=== PATIENT | female | born 1990 | race Caucasian/White ===

== ENCOUNTER 2020-08-06 14:00 | Observation (INO) | payer OTHER ==
[~2020-08-06] VITALS: Ht 165.1 cm; Wt 114.3 kg
[2020-08-06] MEDS ORDERED: PREN1TAB80 PO (14:18)
[2020-08-06 14:44] VITALS: BP 128/69
== END 2020-08-06 16:15 | disposition home or self-care (01) ==
LOC: 4S 14:00
PROVIDERS: ADMIT Obstetrics & Gynecology; ATTEND Obstetrics & Gynecology
DX: O36.8130 Decreased fetal movements, third trimester, not applicable or unspecified (principal); Z3A.38 38 weeks gestation of pregnancy
CPT/HCPCS: 59025; 99219

== ENCOUNTER 2020-08-10 19:06 | Inpatient (IN) | payer OTHER ==
[~2020-08-10] VITALS: Ht 165.1 cm; Wt 116.1 kg
[~2020-08-10 19:06] MED LIST: PREN1TAB80 PO
[2020-08-10] MEDS ORDERED: METOCLOPRAMIDE HCL 5 MG/ML 2 ML VIAL IVP PRN (20:15)
[2020-08-10] MEDS ORDERED: OXYTOCIN 30 UNITS/LACT RINGERS 500 ML IV ONE (20:15)
[2020-08-10] MEDS ORDERED: RINGERS SOLUTION,LACTATED 1,000 ML IV PRN (20:15)
[2020-08-10] MEDS ORDERED: OXYGEN THERAPY IH SCH (20:15)
[2020-08-10] MEDS ORDERED: CITRIC ACID/SODIUM CITRATE 30 ML SOLUTION UDCUP PO PRN (20:15)
[2020-08-10] MEDS ORDERED: DINOPROSTONE 10 MG VAGINAL SUPPOSITORY VG ONE (20:45)
[2020-08-10] MEDS: RINGERS SOLUTION,LACTATED 1,000 ML IV SCH (20:51)
[2020-08-10 21:14] LABS: BASOPHILS % (AUTO) 0.3 % (0.0-2.0); EOSINOPHILS % (AUTO) 0.8 % (1.0-6.0); HEMATOCRIT 34.8 % (36-46); HEMOGLOBIN 11.5 g/dL (12.0-16.0); LYMPHOCYTES # (AUTO) 2.4 K/uL (1.0-4.8); LYMPHOCYTES % (AUTO) 16.4 % (22.0-44.0); MEAN CORPUSCULAR HEMOGLOBIN 28.2 pg (26.0-34.0); MEAN CORPUSCULAR VOLUME 86 fL (80-100); MONOCYTES % (AUTO) 6.7 % (2.0-9.0); NEUTROPHILS % (AUTO) 75.8 % (40.0-70.0); RED BLOOD CELL COUNT(AUTO) 4.07 MIL/uL (4.00-5.20); RED CELL DISTRIBUTION WIDTH 13.5 % (11.5-14.5)
[2020-08-10 21:46] LABS: PLATELET COUNT (AUTO)-OB 258 K/uL (150-450)
[2020-08-10 22:25] VITALS: BP 118/64
[2020-08-10 22:31] LABS: COVID AG,FIA SOURCE NASOPHARYNGEAL
[2020-08-10] MEDS ORDERED: FOLI20CA PO (22:32)
[2020-08-11] MEDS: RINGERS SOLUTION,LACTATED 1,000 ML IV SCH ×4 (02:58→19:03)
[2020-08-11] MEDS ORDERED: FentaNYL CITRATE PF 100 MCG/2 ML VIAL IVP PRN ×2 (06:45→23:45)
[2020-08-11] MEDS ORDERED: -PHARMACY NOTE- MISC ONE (08:45)
[2020-08-11] MEDS ORDERED: OXYTOCIN 30 UNITS/LACT RINGERS 500 ML IV PRN (10:30)
[2020-08-11] MEDS ORDERED: OXYTOCIN 10 UNITS/ML VIAL IM ONE (12:00)
[2020-08-11] MEDS ORDERED: MORPHINE SULFATE/PF 0.5 MG/ML 10 ML AMP IVP ONE (12:00)
[2020-08-11] MEDS ORDERED: FentaNYL CITRATE PF 100 MCG/2 ML VIAL IVP ONE (12:00)
[2020-08-11] MEDS ORDERED: ROPIVACAINE HCL/PF 0.2% 100 ML ED ONE (17:02)
[2020-08-11] MEDS ORDERED: LIDOCAINE/PF 2% 5 ML VIAL ONE (22:33)
[2020-08-11] MEDS ORDERED: GUM MASTIC/STORAX/MSAL/ALCOHOL LIQUID 0.67 ML VIAL TP ONE (23:34)
[2020-08-11] MEDS ORDERED: MEPERIDINE-PF 25 MG/ML VIAL IVP PRN (23:45)
[2020-08-11] MEDS ORDERED: HYDROmorphone 2 MG/ML VIAL IVP PRN (23:45)
[2020-08-12] MEDS ORDERED: OxyCODONE HCL/ACETAMINOPHEN 5-325 MG TABLET PO PRN
[2020-08-12] MEDS ORDERED: OXYTOCIN 30 UNITS/LACT RINGERS 500 ML IV ONE
[2020-08-12] MEDS ORDERED: LANOLIN 7 GM OINTMENT TP PRN
[2020-08-12] MEDS: RINGERS SOLUTION,LACTATED 1,000 ML IV SCH ×2 (00:18→09:28)
[2020-08-12] MEDS ORDERED: METHYLERGONOVINE MALEATE 0.2 MG/ML VIAL ONE (00:21)
[2020-08-12] MEDS ORDERED: ACETAMINOPHEN 1000 MG/ISO-OSM 100 ML IV ONE ×2 (00:22→00:30)
[2020-08-12 05:44] LABS: BASOPHILS % (AUTO) 0.2 % (0.0-2.0); EOSINOPHILS % (AUTO) 0.1 % (1.0-6.0); HEMATOCRIT 31.5 % (36-46); HEMOGLOBIN 10.4 g/dL (12.0-16.0); LYMPHOCYTES # (AUTO) 1.3 K/uL (1.0-4.8); LYMPHOCYTES % (AUTO) 6.6 % (22.0-44.0); MEAN CORPUSCULAR HEMOGLOBIN 28.4 pg (26.0-34.0); MEAN CORPUSCULAR VOLUME 86 fL (80-100); MONOCYTES # (AUTO) 0.9 K/uL (0.1-1.0); MONOCYTES % (AUTO) 4.9 % (2.0-9.0); NEUTROPHILS # (AUTO) 16.9 K/uL (1.8-7.7); PLATELET COUNT (AUTO)-OB 234 K/uL (150-450); RED BLOOD CELL COUNT(AUTO) 3.66 MIL/uL (4.00-5.20); RED CELL DISTRIBUTION WIDTH 13.7 % (11.5-14.5)
[2020-08-12 06:19] LABS: NEUTROPHILS % (AUTO) 88.2 % (40.0-70.0)
[2020-08-12] MEDS ORDERED: KETOROLAC TROMETHAMINE 30 MG/ML VIAL IVP SCH (07:30)
[2020-08-12] MEDS ORDERED: OXYGEN THERAPY IH SCH (08:00)
[2020-08-12] MEDS: MAGNESIUM HYDROXIDE SUSPENSION 30 ML UDCUP PO SCH ×2 (08:02→21:13)
[2020-08-12] MEDS: OxyCODONE HCL/ACETAMINOPHEN 5-325 MG TABLET PO PRN (14:10)
[2020-08-13] MEDS: IBUPROFEN 800 MG TABLET PO PRN ×3 (01:29→15:32)
[2020-08-13] MEDS: MAGNESIUM HYDROXIDE SUSPENSION 30 ML UDCUP PO SCH ×2 (09:10→20:36)
[2020-08-14] MEDS: IBUPROFEN 800 MG TABLET PO PRN (08:13)
[2020-08-14] MEDS: MAGNESIUM HYDROXIDE SUSPENSION 30 ML UDCUP PO SCH (08:13)
[2020-08-14] MEDS ORDERED: IBUP-2071 PO (08:52)
[2020-08-14] MEDS ORDERED: PERCT PO (08:52)
[2020-08-14] MEDS ORDERED: FERR-89 PO (08:53)
[2020-08-14] MEDS ORDERED: DOCU-275 PO (08:53)
[2020-08-14] MEDS: OxyCODONE HCL/ACETAMINOPHEN 5-325 MG TABLET PO PRN (10:09)
== END 2020-08-14 11:00 | disposition home or self-care (01) | DRG 788 ==
LOC: 4S 19:06 → OBSVTOIN 19:06 → 4S 08-12 02:44
PROVIDERS: ADMIT Student in an Organized Health Care Education/Training Program; ATTEND Student in an Organized Health Care Education/Training Program
PROC: 10D00Z1 Extraction of Products of Conception, Low, Open Approach (ICD-10-PCS; principal; 2020-08-11)
DX: O62.2 Other uterine inertia (principal); Z3A.39 39 weeks gestation of pregnancy; Z20.822 Contact with and (suspected) exposure to COVID-19; Z37.0 Single live birth
CPT/HCPCS: 86850; 86900; 86901; 86923; 87426; J0131; J0690; J1885; J2210; J2274; J2590; J2765; J2795; J3010; J3490; J7120